=== PATIENT | female | born 1975 | race Caucasian/White ===

== ENCOUNTER → 2024-08-20 19:04 | Outpatient (REF) | payer BC, SELFPAY | LOC: WDC 19:04 | PROVIDERS: ATTENDING PHYSICIAN Obstetrics & Gynecology Gynecology; FAMILY PHYSICIAN Internal Medicine | DX: Z12.31 Encounter for screening mammogram for malignant neoplasm of breast (principal) | CPT/HCPCS: 77063; 77067 ==

== ENCOUNTER → 2025-08-26 15:57 | Outpatient (REF) | payer BC, SELFPAY | LOC: WDC 15:57 | PROVIDERS: ATTENDING PHYSICIAN Obstetrics & Gynecology Gynecology; FAMILY PHYSICIAN Internal Medicine | DX: Z12.31 Encounter for screening mammogram for malignant neoplasm of breast (principal) | CPT/HCPCS: 77063; 77067 ==